=== PATIENT | female | born 1995 | race Caucasian/White ===

== ENCOUNTER 2023-03-05 03:29 | Inpatient (IN) ==
[2023-03-05] MEDS: OXYTOCIN 30 UNITS/NSS 30 UNITS/500 ML BAG IV PRN ×2 (03:36→04:56)
[2023-03-05] MEDS ORDERED: HYDROCORTISONE ACETATE 25 MG SUPP PR PRN (03:44)
[2023-03-05] MEDS ORDERED: oxyCODONE/ACETAMINOPHEN 5mg/325mg TAB PO PRN (03:44)
[2023-03-05] MEDS ORDERED: MEASLES, MUMPS & RUBELLA VIRUS VACCINE (MMR) VIAL SQ ONE (03:44)
[2023-03-05] MEDS ORDERED: BENZOCAINE 20% SPRY 85 APPLN/85 GM CAN EXT PRN (03:44)
[2023-03-05] MEDS ORDERED: DIPHTHERIA/TETANUS/PERTUSSIS Vaccine (Tdap, Age 7+yrs) 0.5mL SYR/VL IM ONE (03:44)
[2023-03-05] MEDS ORDERED: ACETAMINOPHEN 325 MG TAB PO PRN (03:44)
--- NOTE | 2023-03-05 04:02 | Delivery Summary ---
Vaginal Delivery Summary Date of Service March 05, 2023 Vaginal Delivery Summary Patient is a 28-year-old -0-0-3 at 40 weeks and 5 days of gestation who started with contractions around 11 PM when she went to the about and woke up with more painful and regular Contractions at 1:30 AM. She called me around 4 AM and I recommended her to come in. She lives [address] from hospital and precipitously delivered in the car 5 minutes before arrival to the ER at around 0 3:17 AM this morning. She was taken to the ER holding her baby given who was attached to the cord. It was clamped times and cut by myself in the ER. And baby was breathing normally and doing well in mother's arms. They were brought up to labor and delivery in the stretcher and then the mother was moved to the pelvic ped. The was taken by pediatric team to the heater. Placenta was in the vagina and delivered spontaneously intact and complete by myself. Vagina and perineum were intact, no lacerations were found. Lower segment was cleared of all clots and debris's, fundus was firm and EBL was 200 ml. Mom and baby are doing well and stable. Mom has an IV now and will have oxytocin infusion. Her has been uncomplicated except tobacco use and Rh-, she has received RhoGAM on December 08, 2022. GBS negative. She was in the office yesterday when membranes were swiped for labor. She was on schedule for induction of labor on March 09. Baby and mom are being admitted and will continue with routine care.
[2023-03-05 04:15] LABS: Hemoglobin 12.6 g/dl (12.0-16.0); Mean Corpuscular Hgb Conc 34.1 g/dL (32.0-36.0); Mean Corpuscular Volume 82.2 fL (80.0-100.0); Mean Platelet Volume 12.6 fL (9.4-12.4); Platelet Count 144 K/uL (130-400); RDW Standard Deviation 41.3 fL (36.4-46.3); White Blood Count 15.38 K/ul (4.8-10.8)
[2023-03-05] MEDS ORDERED: OXYTOCIN 10 UNITS/ML VIAL ONE (04:55)
[2023-03-05] MEDS: IBUPROFEN 600 MG TAB PO PRN ×4 (05:38→20:28)
--- OUTSIDE RECORDS SUMMARY | 2023-03-05 06:35 | External Medical Summary | Summary of Care ---
Author Name Unknown Organization [facility] Address [address] [place] [address] Phone [phone] Care Team Providers Care Cotton Weigher Operator Name Role Phone Cyndee Kaminski DO Primary Care Provider +1- [phone] Reason for Visit * Reason Comments Return Visit Encounter Details Date Type Department Care Team (Late st Contact Info) Description 03/04/2023 9:45 AM EST Office Visit Gynecology/Obstetric s Rubina Pino [address] [place] [address] Kourtney Bowers CRNP [address] [place] [address] Post-term , 40-42 weeks of gestation*; Normal in third trimester; Rh negative status during in third trimester Allergies No known active allergiesdocumented as of this encounter (statuses as of 03/04/2023) Medications Medication Sig Dispensed Refills Start Date End Date Status 28-0.8 MG Oral Tablet Take by mouth . 0 Active Breast PumpIndications:Breas t feeding status of mother ANNAMARIE 02/28/23, Z39.1, double electric pump 1 Each 0 02/03/2023 Active documented as of this encounter (statuses as of 03/04/2023) Active Problems Problem Noted Date Diagnosed Date Normal 08/26/2022 Rh negative status during 08/26/2022 Overview: rhoGAM given 12/08/22 Tobacco use disorder 09/17/2021 Estimated Date of Delivery Comme nts Yes 02/28/2023 Based on last me nstrual period of 05/24/2022 (Exact Date) documented as of this encounter (statuses as of 03/04/2023) Resolved Problems Problem Noted Date Diagnosed Date Resolved Date Normal 09/05/2015 04/29/2016 Overview: Problem Action Taken Date entered Entered by Date resolved Smoking/tobacco abuse Smoking Education- Was smoking 20 per day down to 10 Cessation encouraged 09/05/2015 Luz Marina Myles RN Unknown LMP Dating via ultrasound 09/05/2015 Luz Marina Myles RN Unplanned desired 09/05/2015 Luz Marina Myles RN nutrition Due date letter provided for WIC 09/05/2015 Luz Marina Myles RN education Declines classes and home nursing at current time 09/05/2015 Luz Marina Myles RN Problem Action Taken Date entered Entered by Date resolved Smoking/tobacco abuse Smoking Education Patient quit smoking 10/27/15 11/20/2015 Raisa Wallace RN 11/20/15 Problem Action Taken Date entered Entered by Date resolved Breast feeding Plans to nurse. Desires breast pump Script faxed 12/25/2015 Luz Marina Myles RN 12/25/2015 control Pt undecided of control. Desires non hormonal. Leaning towards paragard 12/25/2015 Luz Marina Myles RN 12/25/2015 Problem Action Taken Date entered Entered by Date resolved Current needs or questions Patient denies having any current needs or questions 02/26/2016 Keily Rogel RN 02/26/16 Problem Action Taken Date entered Entered by Date resolved Current needs or questions Patient denies having any current needs or questions 03/11/2016 Keily Rogel RN 03/11/16 Tobacco smoking affecting pr egnancy in second trimester 09/05/2015 04/29/2016 Need for rhogam due to Rh negative mother 09/05/2015 04/29/2016 Overview: Rhogam candidate Acute conjunctivitis of right eye 12/19/2014 03/01/2017 Acute maxillary sinusitis 12/19/2014 Adjustment disorder with depressed mood 12/19/2014 03/01/2017 GBS (group B Streptococcus c arrier), +RV culture, currently 02/08/2014 04/29/2016 Contact with or exposure to other viral diseases(V01.79) 10/19/2013 12/19/2014 Overview: 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 Pt given VIS(vaccine information sheet) Nikki Farmer RN Encounter for supervision of other normal 08/22/2013 12/19/2014 Overview: Tdap vaccine administered 01/25/2014 Selene Granados RN ICD-10 update of inactive term Amenorrhea 07/27/2013 08/22/2013 Uncertain dates, antepartum 07/27/2013 08/22/2013 documented as of this encounter (statuses as of 03/04/2023) Immunizations Name Administration Dates Next Due HPV Vaccine, 4-Valent 05/23/2013,06/16/2010 Hepatitis A Vaccine 05/23/2013 Meningococcal MCV4P Conjugate Vaccine (Menactra) 05/23/2013,02/07/2010 Pneumococcal Polysaccharide PPV23 (Pneumovax) ,09/03/2016 Seasonal Influenza Virus Vac cine, Unspecified Formulation 09/04/2016,09/03/2016 TDAP (age 10 and older)(Boostrix) 02/26/2016, TDAP (age 11 and older)(Adacel) 02/07/2010 documented as of this encounter Social History Tobacco Use Types Packs/Day Years Used Date Smoking Tobacco: Former Cigarettes 0.3 Smokeless Tobacco: Never Comments:cutting down Alcohol Use Standard Drinks/Week Comments Not Currently 0 (1 standard drink = 0.6 oz pur e alcohol) PHQ-2 Answer Date Recorded PHQ-2 Score 0 12/05/2019 Hunger Vital Sign Answer Date Recorded Within the past 12 months, y ou worried that your food would run out before you got the money to buy more. Never true 02/04/20 23 Within the past 12 months, t he food you bought just didn't last and you didn't have money to get more. Never true 02/03/2023 [place] Depression Scale Answer Date Recorded [place] Depression Scale Total 5 02/03/2023 The thought of harming myself has occurred to me . Never 02/03/2023 Estimated Date of Delivery Comme nts Yes 02/28/2023 Based on last me nstrual period of 05/24/2022 (Exact Date) Sex and Gender Information Value Date Recorded Sex Assigned at Female 10/27/2021 12:37 AM EDT Gender Identity Female 10/27/2021 12:37 AM EDT Sexual Orientation Straight 10/27/2021 12 :37 AM EDT Job Start Date Occupation Industry Not on file Not on file Not on file documented as of this encounter Last Filed Vital Signs Vital Sign Reading Time Taken Comments Blood Pressure 118/70 03/04/2023 9:56 AM EST Pulse - - Temperature - - Respiratory Rate - - Oxygen Saturation - - Inhaled Oxygen Concentration - - Weight 100.2 kg (220 lb 12.8 oz) 03/04/2023 9:56 AM EST Height 171.5 cm (5' 7.5") 03/04/2023 9:56 AM EST Body Mass Index 34.07 03/04/2023 9:56 AM EST documented in this encounter Progress Notes * Kourtney Bowers CRNP - 03/04/2023 10:18 AM EST 40w4d ?ROM. Has had persistently wet underwear at least since yesterday, maybe since Wednesday. Smelled likeurine, but isn't sure what it is. Was scheduled for membrane sweep today. Explained we need to assess for ROM prior to this. Baby is active. Denies contractions or bleeding. Housekeeper Caregiver Documentation Provider requested machine rebuilder. Name of machine rebuilder: Dee Dee ROM+ obtained, negative. Return Wednesday for NST/DEIDRE. IOL 03/09. * Dee Dee Omalley LPN - 03/04/2023 10:02 AM EST 40w4d Pt here for membrane strip, unsure if she is leaking, not consistently having leaking, put on pantyliner not soaked through. documented in this encounter Plan of Treatment Upcoming Encounters Date Type Department Care Team (Late st Contact Info) Description 03/05/2023 10:45 AM EST [facility] [address] [facility] [place] [address] 03/08/2023 11:15 AM EST Office Visit Gynecology/Obstetrics [facility] [address] [place] [address] Backer, JORDON Ewing [address] [place] [address] Arlyn Pino Stress Tests [facility] [address] [place] [address] Scheduled Orders Name Type Priority Associated Diagnoses Orde r Schedule US PREG LIMITED 1 OR MORE FETUSES Medical Imaging Routine Post-term , 40-42 weeks of gestation Expected: 03/05/2023 (Approximate), Expires: 04/04/2024 Health Maintenance Due Date Last Done Comments Hepatitis B (1 of 3 - 3-dose series) 1995 COVID-19 Vaccine (#1) 1995 GARDASIL-HPV IMMUNIZATION SERIES (3 - 3-dose series) 08/15/2013 05/23/2013, 06/16/2010 Depression Screening 12/04/2020 12/05/2019 Influenza Vaccine (FLU shot) (#1) 2022 09/04/2016, 09/03/2016 Pap Smear 07/28/2025 07/28/2022, 09/17/2021 DTaP,Tdap,and Td Vaccines (4 - Td or Tdap) 02/25/2026 02/26/2016, 01/25/2014, 02/07/2010 MENINGOCOCCAL (MENACTRA/MENVEO) Completed 05/23/2013, 02/07/2010 Pneumococcal Vaccine: Pediatrics (0 to 5 Years) and At-Risk Patients (6 to 64 Years) Aged Out 09/04/2016, 09/03/2016 No longer eligibl e based on patient's age to complete this topic Gonorrhea / Chlamydia Screen Discontinued 07/28/2022, 05/25/2022, 09/17/2021, Additional history exists documented as of this encounter Medical Devices Not on filedocumented as of this encounter Procedures Procedure Name Priority Date/Time Associated Diagnosis Comments RUPTURE OF MEMBRANE STAT 03/04/2023 10:20 AM EST Post-term , 40-42 weeks of gestation documented in this encounter Results * RUPTURE OF MEMBRANE (03/04/2023 10:20 AM EST) Rupture of Membrane Negative Negative 03/04/2023 10:45 AM EST LAB[facility]ATORY [facility] [place] [address] Swab Specimen from wound / Unknown 03/04/2023 10:20 AM EST 03/04/2023 10:20 AM EST Kourtney RUVALCABA LAB FLUID AND STOOL ORDERABLES LABORATORY [facility] [place] [address] [facility] [place] [address] documented in this encounter Visit Diagnoses Diagnosis Post-term , 40-42 weeks of gestation- Primary Post term , unspecified episode of care Normal in third trimester Rh negative status during in third trimester documented in this encounter Care Teams Cotton Weigher Operator Relationship Specialty Start Date End Date Cyndee Kaminski DO [address] [facility] [place] [address] PCP - General Family Medicine 04/12/22 documented as of this encounter
--- OUTSIDE RECORDS SUMMARY | 2023-03-05 06:35 | External Medical Summary ---
Author Name Unknown Address Unknown Organization [id number][facility] [address] [place] [address] Laboratory Report Ordering Provider Test Date Status KESHIA REY 03/04/2023 10:20:04 Final Observation Date Value Abnormality Reference (Units ) Status Premature Rupture Membrane risk 03/04/2023 10:20:04 Negative Negative Final Performing Location LABORATORY [facility] [place] [address] [place] [address]
--- OUTSIDE RECORDS SUMMARY | 2023-03-05 06:36 | External Medical Summary | Summary of Care ---
Author Name Unknown Organization [facility] Address [address] [place] [address] Phone [phone] Care Team Providers Care Automatic Washer Mechanic Name Role Phone Cyndee Kaminski DO Primary Care Provider +1- [phone] Reason for Visit * Reason Comments Return Visit Encounter Details Date Type Department Care Team Description 01/05/2023 [facility] [address] [facility] [place] [address] Kourtney Bowers CRNP [address] [place] [address] Normal in third trimester*; Rh negative, antepartum; Urinary frequency Allergies No known active allergiesdocumented as of this encounter (statuses as of 01/05/2023) Medications Medication Sig Dispensed Refills Start Date End Date Status 28-0.8 MG Oral Tablet Take by mouth . 0 Active documented as of this encounter (statuses as of 01/05/2023) Active Problems Problem Noted Date Normal 08/26/2022 Rh negative status during 07/29 Overview: rhoGAM given 12/08/22 Tobacco use disorder 09/17/2021 Estimated Date of Delivery Comme nts Yes 02/28/2023 Based on last me nstrual period of 05/24/2022 (Exact Date) documented as of this encounter (statuses as of 01/05/2023) Resolved Problems Problem Noted Date Resolved Date Normal 09/05/2015 04/29/2016 Overview: [...] Keily Rogel RN 03/11/16 Tobacco smoking affecting in second tr imester 09/05/2015 04/29/2016 Need for rhogam due to Rh negative mother 201504/29/2016 Overview: Rhogam candidate Acute conjunctivitis of right eye 12/19/2014 03/01/2017 Acute maxillary sinusitis 12/19/20142016 Adjustment disorder with depressed mood 12/20/19 15 03/01/2017 GBS (group B Streptococcus c arrier), +RV culture, currently 02/08/2014 04/29/2016 Contact with or exposure to other viral diseases (V01.79) 10/19/2013 12/19/2014 Overview: 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 Pt given VIS(vaccine information sheet) Nikki Farmer RN Encounter for supervision of other normal pregna ncy 08/22/2013 12/19/2014 Overview: Tdap vaccine administered 01/25/2014 Selene Granados RN ICD-10 update of inactive term Amenorrhea 07/27/2013 08/22/2013 Uncertain dates, antepartum 07/27/201307/28 documented as of this encounter (statuses as of 01/05/2023) Immunizations Name Administration Dates Next Due HPV [...] drink = 0.6 oz pur e alcohol) Food Insecurity Answer Date Recorded Within the past 12 months, y ou worried that your food would run out before you got money to buy more. Never true 07/28/2022 Within the past 12 months, t he food you bought just didn't last and you didn't have money to get more. Never true 07/28/2022 Estimated Date of Delivery Comme nts Yes 02/28/2023 Based on last me nstrual period of 05/24/2022 (Exact Date) Sex Assigned at Date Recorded Female 10/27/2021 12:37 AM EDT Job Start Date Occupation Industry Not on file Not on file Not on file documented as of this encounter Last Filed Vital Signs Vital Sign Reading Time Taken Comments Blood Pressure 110/60 01/05/2023 1:26 PM EDT Pulse - - Temperature - - Respiratory Rate - - Oxygen Saturation - - Inhaled Oxygen Concentration - - Weight 93.4 kg (206 lb) 01/05/2023 1:26 PM EDT Height 171.5 cm (5' 7.5") 01/05/2023 1:26 PM EDT Body Mass Index 31.79 01/05/2023 1:26 PM EDT documented in this encounter Progress Notes * JORDON Paulino - 01/05/2023 1:56 PM EDT 32w2d Having some urinary frequency and pressure. No dysuria. Will send urine culture. Pressure seems more urinary than uterine to her. No other concerns. Baby is active. No contractions, bleeding or LOF. JORDON Paulino * Dee Dee Omalley LPN - 01/05/2023 1:38 PM EDT 32w2d Pt has been having urinary frequency/urgency. Denies any other concnerns documented in this encounter Plan of Treatment Upcoming Encounters Date Type Specialty Care Team Description 01/25/2023 Office Visit Gynecology Obstetrics Theresa Gonzales, SHAUNA [address] [place] [id number] Pending Results Name Type Priority Associated Diagnoses Date /Time CULTURE, URINE, QUANTITATIVE Lab Routine Urinary frequency 01/05/2023 2:02 PM EDT Health Maintenance Due Date Last Done Comments Hepatitis B (1 of 3 - 3-dose series) 1995 COVID-19 Vaccine (#1) 1995 GARDASIL-HPV IMMUNIZATION SERIES (3 - 3-dose series) 09/20/2013 05/23/2013, 06/16/2010 Depression Screening 12/04/2020 12/05/2019 Influenza [...] Procedure Name Priority Date/Time Associated Diagnosis Comments URINALYSIS, POINT OF CARE (ENTER/EDIT) Routine 01/05/2023 Urinary frequency documented in this encounter Results * URINALYSIS, POINT OF CARE (ENTER/EDIT) (01/05/2023) Color, Urine Yellow Yellow or Light Yellow Clarity, Urine Clear Clear Glucose, Urine Negative Negative mg/dL Bilirubin, Urine Negative Negative Ketone, Urine Negative Negative mg/dL Specific [place], Urine 1.025 1.003 - 1.030 Blood, Urine Negative Negative pH, Urine 6.5 5.0 - 7.5 units Protein, Urine Negative Negative mg/dL Urobilinogen, Urine 0.2 0.2 - 1.0 mg/dL Nitrite, Urine Negative Negative Esterase, Urine Negative Negative Urine 01/05/2023 Kourtney RUVALCABA LAB POINT OF CARE TE ST ENTER/EDIT ORDERABLES documented in this encounter Visit Diagnoses Diagnosis Normal in third trimester- Primary Rh negative, antepartum Rhesus isoimmunization affecting management of mother, antepartum condition Urinary frequency documented in this encounter Care Teams Automatic Washer Mechanic Relationship Specialty Start Date End Date Cyndee Kaminski DO [address] [facility] [place] [address] PCP - General Family Medicine 04/12/22 documented as of this encounter
--- OUTSIDE RECORDS SUMMARY | 2023-03-05 06:36 | External Medical Summary ---
Author Name Unknown Address Unknown Organization K01:LAB[facility]ATORY [facility] - [facility] [address] [facility] [address] [facility] [address] Laboratory Report Ordering Provider Test Date Status ZION WELDON 02/03/2023 13:45:30 Final Observation Date Value Abnormality Reference (Units ) Status Streptococcus agalactiae DNA [Presence] in Specimen by ACE with probe detection 02/03/2023 13:45:30 Negative Negative Final No Group B Streptococcus det ected by culture-enhanced PCR (amplified probe).
The collection of vaginal/rectal swab specimen combinations (FDA approved specimen type) is optimal for the detection of Group B Streptococcus. Single source collection (vaginal only or rectal only) or alternate specimen sources may lead to false negative results. Performing Location LABORATORY [facility] - [address] [place] [address]
--- OUTSIDE RECORDS SUMMARY | 2023-03-05 06:36 | External Medical Summary | Summary of Care ---
Author Name Unknown Organization [facility] Address [address] [place] [address] Phone [phone] Care Team Providers Care Coordinator Of Health Services Name Role Phone Cyndee Kaminski DO Primary Care Provider +1- [phone] Reason for Visit * Reason Comments Return Visit Encounter Details Date Type Department Care Team Description 01/05/2023 [facility] [address] [facility] [place] [address] Kourtney Bowers CRNP [address] [facility] [place] [address] Normal in third trimester*; Rh negative, antepartum; [...] Visit Gynecology Obstetrics Theresa Gonzales, SHAUNA [address] [place] [phone] Pending Results Name Type Priority Associated Diagnoses [...] Negative Ketone, Urine Negative Negative mg/dL Specific [place], Urine 1.025 1.003 - 1.030 Blood, Urine [...] frequency documented in this encounter Care Teams Coordinator Of Health Services Relationship Specialty Start Date End Date Cyndee Kaminski DO [address] [facility] [place] [address] PCP - General Family Medicine 04/12/22 documented as of this encounter
--- OUTSIDE RECORDS SUMMARY | 2023-03-05 06:36 | External Medical Summary | Summary of Care ---
Author Name Unknown Organization [facility] Address [address] [place] [address] Phone [phone] Care Team Providers Care Manager Client Support Name Role Phone Cyndee Kaminski DO Primary Care Provider +1- [phone] Reason for Visit * Reason Comments Return Visit Encounter Details Date Type Department Care Team (Late st Contact Info) Description 02/03/2023 1:45 PM EST Office Visit Gynecology/Obstetric s Rubina Pino [address] [place] [address] BackDivya workman CRNP [address] [facility] [place] [address] Normal in third trimester*; Rh negative status during in third trimester; Breast feeding status of mother Allergies No known active allergiesdocumented as of this encounter (statuses as of 02/03/2023) Medications Medication Sig Dispensed Refills Start Date End Date Status 28-0.8 MG Oral Tablet Take by mouth . 0 Active Breast PumpIndications:Breas t feeding status of mother ANNAMARIE 02/28/23, Z39.1, double electric pump 1 Each 0 02/03/2023 Active documented as of this encounter (statuses as of 02/03/2023) Active Problems Problem Noted Date Diagnosed Date Normal 08/26/2022 Rh negative status during 08/26/2022 Overview: rhoGAM given 12/08/22 Tobacco use disorder 09/17/2021 Estimated Date of Delivery Comme nts Yes 02/28/2023 Based on last me nstrual period of 05/24/2022 (Exact Date) documented as of this encounter (statuses as of 02/03/2023) Resolved Problems Problem Noted Date Diagnosed Date [...] 12/19/2014 03/01/2017 GBS (group B Streptococcus c abiel), +RV culture, currently 02/08/2014 04/29/2016 Contact with or exposure to other viral diseases(V01.79) 10/19/2013 12/19/2014 Overview: 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 Pt given VIS(vaccine information sheet) Nikki Farmer RN Encounter for supervision of other normal 08/22/2013 12/19/2014 Overview: Tdap vaccine administered 01/25/2014 Selene Granados RN ICD-10 update of inactive term Amenorrhea 07/27/2013 08/22/2013 Uncertain dates, antepartum 07/27/2013 08/22/2013 documented as of this encounter (statuses as of 02/03/2023) Immunizations Name Administration Dates Next Due HPV [...] money to get more. Never true 02/03/2023 [place] Depression Scale Answer Date Recorded [place] Depression Scale Total 5 02/03/2023 The thought [...] Sign Reading Time Taken Comments Blood Pressure - - Pulse - - Temperature - - Respiratory Rate - - Oxygen Saturation - - Inhaled Oxygen Concentration - - Weight 96.2 kg (212 lb) 02/03/2023 1:29 PM EST Height - - Body Mass Index 32.71 01/05/2023 1:26 PM EDT documented in this encounter Progress Notes * Divya Egan CRNP - 02/03/2023 1:32 PM EST 36w3d Good movement. No regular ctx/leaking/bleeding. Breast pump script & labor instructions provided. GBS today. 1 week return Editor Greeting Card Documentation Provider requested travel assistant. Name of travel assistant: JORDON Ramos LPN * Meera Croft LPN - 02/03/2023 1:29 PM EST 36w3d Denies vaginal bleeding/rom + movement Need breast pump script documented in this encounter Plan of Treatment Upcoming Encounters Date Type Department Care Team (Late Contact Info) Description 02/09/2023 11:45 AM EST Office Visit Gynecology/Obstetrics Rubina Pino [address] [place] [address] Divya Egan CRNP [address] [place] [address] Pending Results Name Type Priority Associated Diagnoses Date /Time GROUP B STREP CULTURE/PCR Lab Routine Normal in third trimester 02/03/2023 1:45 PM EST Health Maintenance Due Date Last Done Comments [...] Not on filedocumented as of this encounter Visit Diagnoses Diagnosis Normal in third trimester- Primary Rh negative status during in third trimester Breast feeding status of mother care and examination of lactating mother documented in this encounter Care Teams Manager Client Support Relationship Specialty Start Date End Date Cyndee Kaminski DO [address] [facility] [place] [address] PCP - General Family Medicine 04/12/22 documented as of this encounter
--- OUTSIDE RECORDS SUMMARY | 2023-03-05 06:36 | External Medical Summary | Summary of Care ---
Author Name Unknown Organization [facility] Address [address] [place] [address] Phone [phone] Care Team Providers Care Second Facing Baster Name Role Phone Cyndee Kaminski DO Primary Care Provider +1- [phone] Reason for Visit * Reason Comments Return Visit Encounter Details Date Type Department Care Team Description 12/22/2022 Office [facility] [address] [place] [address] Jewell Meeks PA-C [address] [place] [address] Normal in third trimester*; Rh negative status during in third trimester Allergies No known active allergiesdocumented as of this encounter (statuses as of 12/22/2022) Medications Medication Sig Dispensed Refills Start Date End Date Status 28-0.8 MG Oral Tablet Take by mouth . 0 Active documented as of this encounter (statuses as of 12/22/2022) Active Problems Problem Noted Date Normal 08/26/2022 Rh negative status during 07/29 Overview: rhoGAM given 12/08/22 Tobacco use disorder 09/17/2021 Estimated Date of Delivery Comme nts Yes 02/28/2023 Based on last me nstrual period of 05/24/2022 (Exact Date) documented as of this encounter (statuses as of 12/22/2022) Resolved Problems Problem Noted Date Resolved Date [...] as of this encounter (statuses as of 12/22/2022) Immunizations Name Administration Dates Next Due HPV [...] Sign Reading Time Taken Comments Blood Pressure 118/74 12/22/2022 11:19 AM EDT Pulse - - Temperature - - Respiratory Rate - - Oxygen Saturation - - Inhaled Oxygen Concentration - - Weight 90.3 kg (199 lb) 12/22/2022 11:19 AM EDT Height 171.5 cm (5' 7.5") 12/22/2022 11:19 AM ED T Body Mass Index 30.71 12/22/2022 11:19 AM EDT documented in this encounter Progress Notes * Jewell Meeks PA-C - 12/22/2022 11:28 AM EDT 30w2d Denies concerns. Denies bleeding, leaking, contractions. Affirms FM. Recommendation for flu vaccine, patient declines. RTC in 2 weeks. Call with questions or concerns. Jewell Meeks PA-C documented in this encounter Nursing Notes * Radha Duarte LPN - 12/22/2022 11:30 AM EDT 30w2d Denies concerns. documented in this encounter Plan of Treatment Upcoming Encounters Date Type Specialty Care Team Description 01/05/2023 Office Visit Gynecology Obstetrics Kourtney Bowers CRNP [address] [place] [address] Health Maintenance Due Date Last Done Comments [...] Discontinued 07/28/2022, 05/25/2022, 09/17/2021, Additional history exists Hepatitis C Screening Completed 07/28/2022 , 07/28/2022, 07/28/2022, Additional history exists documented as of this encounter Medical Devices Not on filedocumented as of this encounter Visit Diagnoses Diagnosis Normal in third trimester- Primary Rh negative status during in third trimester documented in this encounter Care Teams Second Facing Baster Relationship Specialty Start Date End Date Cyndee Kaminski DO [address] [facility] [place] [address] PCP - General Family Medicine 04/12/22 documented as of this encounter
--- OUTSIDE RECORDS SUMMARY | 2023-03-05 06:36 | External Medical Summary | Summary of Care ---
Author Name Unknown Organization [facility] Address [address] [place] [address] Phone [phone] Care Team Providers Care Audit Specialist Name Role Phone Cyndee Kaminski DO Primary Care Provider +1- [phone] Reason for Visit * Reason Comments Return Visit Encounter Details Date Type Department Care Team (Late st Contact Info) Description 02/22/2023 10:45 AM EST Office Visit Gynecology/Obstetric s Rubina Pino [address] [place] [address] Kourtney Bowers CRNP [address] [place] [address] Normal in third trimester*; Rh negative, antepartum Allergies No known active allergiesdocumented as of this encounter (statuses as of 02/22/2023) Medications Medication Sig Dispensed Refills Start Date End Date Status 28-0.8 MG Oral Tablet Take by mouth . 0 Active Breast PumpIndications:Breas t feeding status of mother ANNAMARIE 02/28/23, Z39.1, double electric pump 1 Each 0 02/03/2023 Active documented as of this encounter (statuses as of 02/22/2023) Active Problems Problem Noted Date Diagnosed Date Normal 08/26/2022 Rh negative status during 08/26/2022 Overview: rhoGAM given 12/08/22 Tobacco use disorder 09/17/2021 Estimated Date of Delivery Comme nts Yes 02/28/2023 Based on last me nstrual period of 05/24/2022 (Exact Date) documented as of this encounter (statuses as of 02/22/2023) Resolved Problems Problem Noted Date Diagnosed Date [...] need follow up Rh negative, antepartum 08/28/2013 02/03/2016 Overview: Rhogam candidate Received rhogam 12/25/2015 Randa Casanova RN 02/26/2016 Tdap Vaccine administered per clinic protocol. Pt given VIS(vaccine information sheet) Nikki Farmer RN Encounter for supervision of other normal 08/22/2013 12/19/2014 Overview: Tdap vaccine administered 01/25/2014 Selene Granados RN ICD-10 update of inactive term Amenorrhea 07/27/2013 08/22/2013 Uncertain dates, antepartum 07/27/2013 08/22/2013 documented as of this encounter (statuses as of 02/22/2023) Immunizations Name Administration Dates Next Due HPV [...] money to get more. Never true 02/03/2023 [place] Depression Scale Answer Date Recorded [place] Depression Scale Total 5 02/03/2023 The thought [...] Sign Reading Time Taken Comments Blood Pressure 122/72 02/22/2023 10:47 AM EST Pulse - - Temperature - - Respiratory Rate - - Oxygen Saturation - - Inhaled Oxygen Concentration - - Weight 100.7 kg (222 lb) 02/22/2023 10:47 AM EST Height - - Body Mass Index 34.26 01/05/2023 1:26 PM EDT documented in this encounter Progress Notes * Kourtney Bowers CRNP - 02/22/2023 11:00 AM EST 39w1d Complaints: none Feeling well overall. Good FM. No contractions, bleeding, or LOF. Agreeable to IOL after 41w, scheduled for 03/09. JORDON Paulino * Meera Croft LPN - 02/22/2023 10:48 AM EST 39w1d Denies vaginal bleeding/rom + movement No new concerns documented in this encounter Plan of Treatment Upcoming Encounters Date Type Department Care Team (Late st Contact Info) Description 03/01/2023 11:45 AM EST Office Visit Gynecology/Obstetrics [facility] [address] [place] [address] Selene Marrero, [facility] [address] [place] [address] Health Maintenance Due Date Last Done Comments [...] isoimmunization affecting management of mother, antepartum condition documented in this encounter Care Teams Audit Specialist Relationship Specialty Start Date End Date Cyndee Kaminski DO [address] [facility] [place] [address] PCP - General Family Medicine 04/12/22 documented as of this encounter
--- OUTSIDE RECORDS SUMMARY | 2023-03-05 06:36 | External Medical Summary | Summary of Care ---
Author Name Unknown Organization [facility] Address [address] [place] [address] Phone [phone] Care Team Providers Care Nursing Program Director Name Role Phone Cyndee Kaminski DO Primary Care Provider +1- [phone] Reason for Visit * Reason Comments Return Visit Encounter Details Date Type Department Care Team Description 01/05/2023 [facility] [address] [facility] [place] [address] Kourtney Bowers CRNP [address] [facility] [place] [address] Normal in third trimester*; Rh negative, antepartum; [...] Visit Gynecology Obstetrics Theresa Gonzales, SHAUNA [address] [place] [id number] Pending Results Name Type Priority Associated Diagnoses [...] Negative Ketone, Urine Negative Negative mg/dL Specific [place], Urine 1.025 1.003 - 1.030 Blood, Urine [...] frequency documented in this encounter Care Teams Nursing Program Director Relationship Specialty Start Date End Date Cyndee Kaminski DO [address] [facility] [place] [address] PCP - General Family Medicine 04/12/22 documented as of this encounter
--- OUTSIDE RECORDS SUMMARY | 2023-03-05 06:36 | External Medical Summary | Summary of Care ---
Author Name Unknown Organization [facility] Address [address] [place] [address] Phone [phone] Care Team Providers Care Plate Mill Hand Name Role Phone Cyndee Kaminski DO Primary Care Provider +1- [phone] Reason for Visit * Reason Comments Return Visit Encounter Details Date Type Department Care Team (Late st Contact Info) Description 02/15/2023 11:45 AM EST Office Visit Gynecology/Obstetric s Rubina Pino [address] [place] [address] BackDivya workman CRNP [address] [facility] [place] [address] Normal in third trimester*; Rh negative status during in third trimester Allergies No known active allergiesdocumented as of this encounter (statuses as of 02/15/2023) Medications Medication Sig Dispensed Refills Start Date End Date Status 28-0.8 MG Oral Tablet Take by mouth . 0 Active Breast PumpIndications:Breas t feeding status of mother ANNAMARIE 02/28/23, Z39.1, double electric pump 1 Each 0 02/03/2023 Active documented as of this encounter (statuses as of 02/15/2023) Active Problems Problem Noted Date Diagnosed Date Normal 08/26/2022 Rh negative status during 08/26/2022 Overview: rhoGAM given 12/08/22 Tobacco use disorder 09/17/2021 Estimated Date of Delivery Comme nts Yes 02/28/2023 Based on last me nstrual period of 05/24/2022 (Exact Date) documented as of this encounter (statuses as of 02/15/2023) Resolved Problems Problem Noted Date Diagnosed Date [...] Overview: Rhogam candidate Received rhogam 12/25/2015 Randa Casanova, RN 02/26/2016 Tdap Vaccine administered per clinic protocol. Pt given VIS(vaccine information sheet) Nikki Farmer RN Encounter for supervision of other normal 08/22/2013 12/19/2014 Overview: Tdap vaccine administered 01/25/2014 Selene Granados RN ICD-10 update of inactive term Amenorrhea 07/27/2013 08/22/2013 Uncertain dates, antepartum 07/27/2013 08/22/2013 documented as of this encounter (statuses as of 02/15/2023) Immunizations Name Administration Dates Next Due HPV [...] money to get more. Never true 02/03/2023 [place] Depression Scale Answer Date Recorded [place] Depression Scale Total 5 02/03/2023 The thought [...] Sign Reading Time Taken Comments Blood Pressure 106/62 02/15/2023 11:41 AM EST Pulse - - Temperature - - Respiratory Rate - - Oxygen Saturation - - Inhaled Oxygen Concentration - - Weight 97.5 kg (215 lb) 02/15/2023 11:41 AM EST Height - - Body Mass Index 33.18 01/05/2023 1:26 PM EDT documented in this encounter Progress Notes * Divya Egan CRNP - 02/15/2023 11:53 AM EST 38w1d Doing well, reports good movement. No ctx, leaking/bleeding. Has labor instructions. 1 week return JORDON [place] documented in this encounter Plan of Treatment Health Maintenance Due Date Last Done Comments [...] trimester documented in this encounter Care Teams Plate Mill Hand Relationship Specialty Start Date End Date Cyndee Kaminski DO [address] [facility] [place] [address] PCP - General Family Medicine 04/12/22 documented as of this encounter
--- OUTSIDE RECORDS SUMMARY | 2023-03-05 06:36 | External Medical Summary | Summary of Care ---
Author Name Unknown Organization [facility] Address [address] [place] [address] Phone [phone] Care Team Providers Care Salon Designer Name Role Phone Cyndee Kaminski DO Primary Care Provider +1- [phone] Reason for Visit * Reason Comments Return Visit Encounter Details Date Type Department Care Team (Late st Contact Info) Description 02/03/2023 1:45 PM EST Office Visit Gynecology/Obstetric s Rubina Pino [address] [place] [address] BackDivya workman CRNP [address] [facility] [place] [address] Normal in third trimester*; Rh negative status [...] money to get more. Never true 02/03/2023 [place] Depression Scale Answer Date Recorded [place] Depression Scale Total 5 02/03/2023 The thought [...] instructions provided. GBS today. 1 week return Jet Blade Polisher Documentation Provider requested sexual health physician. Name of sexual health physician: JORDON Ramos LPN * Meera Croft LPN - 02/03/2023 1:29 PM EST 36w3d Denies vaginal bleeding/rom + movement Need breast pump script documented in this encounter Plan of Treatment Upcoming Encounters Date Type Department Care Team (Late Contact Info) Description 02/09/2023 11:45 AM EST Office Visit Gynecology/Obstetrics Rubina Pino [address] [place] [address] Divya Egan CRNP [address] [place] [address] Pending Results Name Type Priority Associated Diagnoses [...] mother documented in this encounter Care Teams Salon Designer Relationship Specialty Start Date End Date Cyndee Kaminski DO [address] [facility] [place] [address] PCP - General Family Medicine 04/12/22 documented as of this encounter
--- OUTSIDE RECORDS SUMMARY | 2023-03-05 06:36 | External Medical Summary ---
Author Name Unknown Address Unknown Organization K01:[facility] [place] [address] [place] [id number] Laboratory Report Ordering Provider Test Date Status CANDIDOKESHIA 01/05/2023 14:02:42 Final Observation Date Value Abnormality Reference (Units) Status Bacteria identified in Specimen by Culture 01/05/2023 14:02:42 No significant growth Final Test: Culture, Urine, Quant itative
Specimen Source: Urine, Clean Catch
Specimen Type: Urine
Specimen Date: 01/05/2023 2:02 PM
Result Date: 01/06/2023 5:23 PM
Result Status: Final result
Resulting Lab: [facility]
[address]
[place] [address]

CULTURE

No significant growth

null Performing Location [facility] - [address] [facility] [address]
--- OUTSIDE RECORDS SUMMARY | 2023-03-05 06:36 | External Medical Summary | Summary of Care ---
Author Name Unknown Organization [facility] Address [address] [place] [facility] [place] [address] Phone [phone] Care Team Providers Care Oceanographer Geological Name Role Phone Cyndee Kaminski DO Primary Care Provider +1- [phone] Reason for Visit * Reason Comments Return Visit Encounter Details Date Type Department Care Team (Late st Contact Info) Description 03/01/2023 1:45 PM EST Office Visit Gynecology/Obstetric s Rubina Pino [address] [place] [address] Jewell Meeks PA-C [address] [place] [address] Normal in third trimester*; Rh negative status during in third trimester Allergies No known active allergiesdocumented as of this encounter (statuses as of 03/01/2023) Medications Medication Sig Dispensed Refills Start Date End Date Status 28-0.8 MG Oral Tablet Take by mouth . 0 Active Breast PumpIndications:Breas t feeding status of mother ANNAMARIE 02/28/23, Z39.1, double electric pump 1 Each 0 02/03/2023 Active documented as of this encounter (statuses as of 03/01/2023) Active Problems Problem Noted Date Diagnosed Date Normal 08/26/2022 Rh negative status during 08/26/2022 Overview: rhoGAM given 12/08/22 Tobacco use disorder 09/17/2021 Estimated Date of Delivery Comme nts Yes 02/28/2023 Based on last me nstrual period of 05/24/2022 (Exact Date) documented as of this encounter (statuses as of 03/01/2023) Resolved Problems Problem Noted Date Diagnosed Date [...] as of this encounter (statuses as of 03/01/2023) Immunizations Name Administration Dates Next Due HPV [...] money to get more. Never true 02/03/2023 [place] Depression Scale Answer Date Recorded [place] Depression Scale Total 5 02/03/2023 The thought [...] Sign Reading Time Taken Comments Blood Pressure 120/70 03/01/2023 1:47 PM EST Pulse - - Temperature - - Respiratory Rate - - Oxygen Saturation - - Inhaled Oxygen Concentration - - Weight 100.2 kg (221 lb) 03/01/2023 1:47 PM EST Height 171.5 cm (5' 7.5") 03/01/2023 1:47 PM EST Body Mass Index 34.1 03/01/2023 1:47 PM EST documented in this encounter Progress Notes * Jewell Meeks PA-C - 03/01/2023 2:15 PM EST 40w1d Becoming increasingly uncomfortable. Denies contractions. Reports increase in pelvic pressure. Denies LOF, vaginal bleeding. Baby is active. IOL scheduled 03/09/2023, hoping to avoid IOL if able. Declines cervical check. Labor precautions RTC in 1 week VANNESSA/NST Jewell Meeks PA-C * Dee Dee Omalley LPN - 03/01/2023 1:54 PM EST 40w1d Pt denies any concerns. documented in this encounter Plan of Treatment Upcoming Encounters Date Type Department Care Team (Late st Contact Info) Description 03/04/2023 9:45 AM EST Office Visit Gynecology/Obstetrics Rubina Pino [address] [place] [address] Kourtney Bowers CRNP [address] [place] [address] Health Maintenance Due Date Last Done Comments [...] trimester documented in this encounter Care Teams Oceanographer Geological Relationship Specialty Start Date End Date Cyndee Kaminski DO [address] [facility] [place] [address] PCP - General Family Medicine 04/12/22 documented as of this encounter
--- OUTSIDE RECORDS SUMMARY | 2023-03-05 06:37 | External Medical Summary ---
Author Name Unknown Address Unknown Organization [id number]:[facility] [place] - [facility] [address] Laboratory Report Ordering Provider Test Date Status MELISSA PAZ 12/08/2022 12:23:37 Final Observation Date Value Abnormality Reference (Units ) Status WBC, Total 12/08/2022 12:23:37 9.33 4.00-10.8 0 (K/uL) Final RBC 12/08/2022 12:23:37 4.36 3.85-5.15 (M/uL) Final Hemoglobin 12/08/2022 12:23:37 12.7 12.0-15.3 (g/dL) Final Anemia reflex testing trigge rs on a HGB < 12.0 for Females and HGB < 13.0 for Males in accordance with the WHO Anemia Guidelines
Anemia reflex testing triggers on a HGB < 12.0 for Females and HGB < 13.0 for Males in accordance with the WHO Anemia Guidelines HCT 12/08/2022 12:23:37 38.9 36.0-45.2 (%) Final MCV 12/08/2022 12:23:37 89.2 81.5-97.5 (fL) Final MCH 12/08/2022 12:23:37 29.1 27.0-34.0 (pg) Final MCHC 12/08/2022 12:23:37 32.6 32.0-36.0 (g/dL) Final RDW 12/08/2022 12:23:37 13.1 11.5-15.5 (%) Final Platelets 12/08/2022 12:23:37 150 140-400 (K /uL) Final MPV 12/08/2022 12:23:37 12.3 6.6-11.1 ( fL) Final Nucleated erythrocytes/100 leukocytes [Ratio] in Blood by Automated count 12/08/2022 12:23:37 0 <=0 (/100 WBCs) Fi nal Performing Location [facility] [place] - [address] [place] [address]
--- OUTSIDE RECORDS SUMMARY | 2023-03-05 06:37 | External Medical Summary | Summary of Care ---
Author Name Unknown Organization [facility] Address [address] [place] [address] Phone [phone] Care Team Providers Care Underwriting Assistant Name Role Phone Cyndee Kaminski DO Primary Care Provider +1- [phone] Reason for Visit * Reason Comments Return Visit Encounter Details Date Type Department Care Team Description 09/22/2022 Office Visit Gynecology/Obstetrics [facility] [address] [facility] [place] [address] Divya Egan CRNP [address] [facility] [place] [address] Normal in second trimester*; Rh negative status during in second trimester Allergies No known active allergiesdocumented as of this encounter (statuses as of 09/22/2022) Medications Medication Sig Dispensed Refills Start Date End Date Status 28-0.8 MG Oral Tablet Take by mouth . 0 Active documented as of this encounter (statuses as of 09/22/2022) Active Problems Problem Noted Date Normal 08/26/2022 Rh negative status during 07/29 Tobacco use disorder 09/17/2021 Estimated Date of Delivery Comme nts Yes 02/28/2023 Based on last me nstrual period of 05/24/2022 (Exact Date) documented as of this encounter (statuses as of 09/22/2022) Resolved Problems Problem Noted Date Resolved Date [...] 15 03/01/2017 GBS (group B Streptococcus c abiel), [...] as of this encounter (statuses as of 09/22/2022) Immunizations Name Administration Dates Next Due HPV [...] Sign Reading Time Taken Comments Blood Pressure 116/60 09/22/2022 11:23 AM EDT Pulse - - Temperature - - Respiratory Rate - - Oxygen Saturation - - Inhaled Oxygen Concentration - - Weight 78.5 kg (173 lb) 09/22/2022 11:23 AM EDT Height - - Body Mass Index 26.7 07/28/2022 9:35 AM EDT documented in this encounter Progress Notes * JORDON Osorio - 09/22/2022 11:30 AM EDT 17w 2d + movement. Denies cramping/bleeding. Low fraction on NIPT, discussed. Has an order to repeat this, she plans to check her insurance coverage first. Discussed MSAFP and role in detecting ONTD; she wants to check insurance coverage on this as well. Discussed timing of this test. Anatomy scan ordered. JORDON Whittington documented in this encounter Nursing Notes * Meera Croft LPN - 09/22/2022 11:25 AM EDT 17w2d Denies vaginal bleeding/rom Absent movement No new concerns documented in this encounter Plan of Treatment Upcoming Encounters Date Type Specialty Care Team Description 10/12/2022 Imaging Radiology Scheduled Orders Name Type Priority Associated Diagnoses Orde r Schedule US PREG SINGLE/1ST GEST, 14 WEEKS OR LATER Medical Imaging Routine Normal in second trimester Expected: 10/12/2022 (Approximate), Expires: 10/23/2023 Health Maintenance Due Date Last Done Comments Hepatitis B (1 of 3 - 3-dose series) 1995 COVID-19 Vaccine (#1) 1995 GARDASIL-HPV IMMUNIZATION SERIES (3 - 3-dose series) 09/20/2013 05/23/2013, 06/16/2010 Depression Screening, Annual for Pts 12 and Over 12/04/2020 12/05/2019 Influenza Vaccine (FLU shot) (Season Ended) 2022 09/04/2016, 09/03/2016 Pap Smear 07/28/2025 07/28/2022, [...] this encounter Visit Diagnoses Diagnosis Normal in second trimester- Primary Rh negative status during in second trimester documented in this encounter Care Teams Underwriting Assistant Relationship Specialty Start Date End Date Cyndee Kaminski DO [address] [facility] [place] [address] PCP - General Family Medicine 04/12/22 documented as of this encounter
--- OUTSIDE RECORDS SUMMARY | 2023-03-05 06:37 | External Medical Summary ---
Author Name Unknown Address Unknown Organization [id number]:LABORATORY [facility] [place] [facility] - [address] [place] [address] Laboratory Report Ordering Provider Test Date Status MELISSA PAZ 12/08/2022 12:23:37 Final Observation Date Value Abnormality Reference (Units ) Status ABO 12/08/2022 12:23:37 O Final RH 12/08/2022 12:23:37 Negative Final RED BLOOD CELL ANTIBODY SCREEN 12/08/2022 12:23:37 Negative Final SPECIMEN EXPIRATION DATE 12/08/2022 12:23:37 12/11/2022 23:59 Final Performing Location LABORATORY [facility] - [address] [place] [address]
--- OUTSIDE RECORDS SUMMARY | 2023-03-05 06:37 | External Medical Summary ---
Author Name Unknown Address Unknown Organization [id number]:LABORATORY [facility] [address] - [address] [place] [address] Laboratory Report Ordering Provider Test Date Status MELISSA PAZ 12/08/2022 12:23:37 Final Observation Date Value Abnormality Reference (Units ) Status Glucose [Moles/volume] in Serum or Plasma --1 hour post 50 g glucose PO 12/08/2022 12:23:37 94 70-129 (mg/dL) Final Performing Location LAB[facility]ATORY [facility] [address] - [address] [place] [address]
--- OUTSIDE RECORDS SUMMARY | 2023-03-05 06:37 | External Medical Summary ---
Author Name Unknown Address Unknown Organization [id number]:[facility] [address] [place] [address] Laboratory Report Ordering Provider Test Date Status MELISSA PAZ 12/08/2022 12:23:37 Final Observation Date Value Abnormality Reference (Units ) Status Treponema pallidum Ab [Presence] in Serum by Immunoassay 12/08/2022 12:23:37 Nonreactive Nonreactive Final No serologic evidence of syp hilis. No additional testing clinicially indicated at this time. Consider repeat testing in 2-4 weeks if acute or primary syphilis is suspected. Performing Location [facility] - [address] [place] [address]
--- OUTSIDE RECORDS SUMMARY | 2023-03-05 06:37 | External Medical Summary | Summary of Care ---
Author Name Unknown Organization [facility] Address [address] [place] [address] Phone [phone] Care Team Providers Care Butter Grader Name Role Phone Cyndee Kaminski DO Primary Care Provider +1- [phone] Reason for Visit * Reason Comments Outpatient Testing Encounter Details Date Type Department Care Team Description 12/08/2022 Laboratory Laboratory, [facility] [address] [place] [address] [facility] [address] [place] [address] Normal in second trimester; Rh negative status during in second trimester Allergies No known active allergiesdocumented as of this encounter (statuses as of 12/08/2022) Medications Medication Sig Dispensed Refills Start Date End Date Status 28-0.8 MG Oral Tablet Take by mouth . 0 Active Hospital, Clinic, or Other Facility Administered Medication Ordered Dose Route Frequency Start Date End Date Status Rho D Immune Globulin (Rhophylac) inj 300 mcgIndications:Rh negative status during in third trimester 300 mcg IM ONCE 12/08/2022 12/08/2022 Ended documented as of this encounter (statuses as of 12/08/2022) Active Problems Problem Noted Date Normal 08/26/2022 Rh negative status during 07/29 Overview: rhoGAM given 12/08/22 Tobacco use disorder 09/17/2021 Estimated Date of Delivery Comme nts Yes 02/28/2023 Based on last me nstrual period of 05/24/2022 (Exact Date) documented as of this encounter (statuses as of 12/08/2022) Resolved Problems Problem Noted Date Resolved Date [...] as of this encounter (statuses as of 12/08/2022) Immunizations Name Administration Dates Next Due HPV [...] on file documented as of this encounter Plan of Treatment Upcoming Encounters Date Type Specialty Care Team Description 12/22/2022 Office Visit Gynecology Obstetrics Jewell Meeks PA-C [address] [place] [address] Pending Results Name Type Priority Associated Diagnoses Date /Time CBC WITH WBC DIFFERENTIAL AND ANEMIA REFLEX WORKUP Lab Routine Normal in second trimester 12/08/2022 12:23 PM EDT SYPHILIS ANTIBODY SCREEN WITH REFLEX TO RPR Lab Routine Normal in second trimester 12/08/2022 12:23 PM EDT 50-G GESTATIONAL GLUCOSE, 1 HOUR Lab Routine Normal in second trimester 12/08/2022 12:23 PM EDT TYPE AND SCREEN Lab Routine Rh negative status during in second trimester 12/08/2022 12:23 PM EDT ANEMIA CBC Lab Routine Normal in second trimester 12/08/2022 12:23 PM EDT DIFFERENTIAL, AUTOMATED Lab Routine Normal in second trimester 12/08/2022 12:23 PM EDT ANEMIA REFLEX CHEMISTRY HOLD Lab Routine Normal in second trimester 12/08/2022 12:23 PM EDT SYPHILIS ANTIBODY SCREEN Lab Routine Normal in second trimester 12/08/2022 12:23 PM EDT Health Maintenance Due Date Last [...] encounter Visit Diagnoses Diagnosis Normal in second trimester Rh negative status during in second trimester documented in this encounter Care Teams Butter Grader Relationship Specialty Start Date End Date Cyndee Kaminski DO [address] [facility] [place] [address] PCP - General Family Medicine 04/12/22 documented as of this encounter
--- OUTSIDE RECORDS SUMMARY | 2023-03-05 06:37 | External Medical Summary | Summary of Care ---
Author Name Unknown Organization [facility] Address [address] [facility] [place] [address] Phone [phone] Care Team Providers Care Industrial Manufacturing Technician Name Role Phone Cyndee Kaminski DO Primary Care Provider +1- [phone] Encounter Details Date Type Department Care Team Description 09/08/2022 Telephone Gynecology/Obstetrics Rubina Pino [address] [place] [address] Kourtney Bowers CRNP [address] [place] [address] Allergies No known active allergiesdocumented as of this encounter (statuses as of 09/08/2022) Medications Medication Sig Dispensed Refills Start Date End Date Status 28-0.8 MG Oral Tablet Take by mouth . 0 Active documented as of this encounter (statuses as of 09/08/2022) Active Problems Problem Noted Date Normal 08/26/2022 Rh negative status during 07/29 Tobacco use disorder 09/17/2021 Estimated Date of Delivery Comme nts Yes 02/28/2023 Based on last me nstrual period of 05/24/2022 (Exact Date) documented as of this encounter (statuses as of 09/08/2022) Resolved Problems Problem Noted Date Resolved Date [...] 12/19/2014 Overview: Tdap vaccine administered 01/25/2014 Selene Granaods RN ICD-10 update of inactive term Amenorrhea 07/27/2013 08/22/2013 Uncertain dates, antepartum 07/27/201307/28 documented as of this encounter (statuses as of 09/08/2022) Immunizations Name Administration Dates Next Due HPV [...] on file documented as of this encounter Miscellaneous Notes * Telephone Encounter - Jonna Lowery RN - 09/08/2022 2:15 PM EDT Patient called and made aware. Patient verbalized understanding. * Telephone Encounter - JORDON Paulino - 09/08/2022 2:03 PM EDT Order placed. And let her know I hid the gender, like in the first Qnatal she had drawn. * Telephone Encounter - Jonna Lowery RN - 09/08/2022 1:28 PM EDT Patient called and made aware. States she would like to have repeat testing at this time. She wouldlike to have order placed at this time, Advised patient to verify coverage with insurance prior to ordering, patient declines, states she would just like to have this ordered. * Telephone Encounter - JORDON Paulino - 09/08/2022 1:11 PM EDT Pt of Rogelio's: Qnatal shows low fraction. This can occur for a variety of reasons. Can be too early, can occur because of obesity (though likely not her case), some medications, or genetic abnormalities. We can repeat this if she'd like. We can refer to MFM for further evaluation/testing, or we can do nothing. documented in this encounter Plan of Treatment Upcoming Encounters Date Type Specialty Care Team Description 09/22/2022 Office Visit Gynecology Obstetrics Backer, JORDON Ewing [address] [facility] [place] [address] Scheduled Orders Name Type Priority Associated Diagnoses Orde r Schedule QNATAL ADVANCED (QUEST) Lab Routine Normal in second trimester Expected: 09/08/2022, Expires: 09/09/2023 Health Maintenance Due Date Last Done Comments [...] Diagnoses Diagnosis Normal in second trimester- Primary documented in this encounter Care Teams Industrial Manufacturing Technician Relationship Specialty Start Date End Date Cyndee Kaminski DO [address] [facility] [place] [address] PCP - General Family Medicine 04/12/22 documented as of this encounter
--- OUTSIDE RECORDS SUMMARY | 2023-03-05 06:37 | External Medical Summary | Summary of Care ---
Author Name Unknown Organization [facility] Address [address] [facility] [place] [address] Phone [phone] Care Team Providers Care Assistant Plant Controller Name Role Phone yCndee Kaminski DO Primary Care Provider +1- [phone] Reason for Visit * Reason Comments Return Visit Encounter Details Date Type Department Care Team Description 10/12/2022 Office Visit Gynecology/Obstetrics Enamoradoalethea Pino [address] [place] [address] Jewell Meeks PA-C [address] [place] [address] Normal in second trimester*; Rh negative status during in second trimester Allergies No known active allergiesdocumented as of this encounter (statuses as of 10/12/2022) Medications Medication Sig Dispensed Refills Start Date End Date Status 28-0.8 MG Oral Tablet Take by mouth . 0 Active documented as of this encounter (statuses as of 10/12/2022) Active Problems Problem Noted Date Normal 08/26/2022 Rh negative status during 07/29 Tobacco use disorder 09/17/2021 Estimated Date of Delivery Comme nts Yes 02/28/2023 Based on last me nstrual period of 05/24/2022 (Exact Date) documented as of this encounter (statuses as of 10/12/2022) Resolved Problems Problem Noted Date Resolved Date [...] nurse. Desires breast pump Script faxed 12/25/2015 LuzM arina Myles RN 12/25/2015 control Pt undecided of [...] as of this encounter (statuses as of 10/12/2022) Immunizations Name Administration Dates Next Due HPV [...] Reading Time Taken Comments Blood Pressure 110/60 10/12/2022 11:09 AM EDT Pulse - - Temperature - - Respiratory Rate - - Oxygen Saturation - - Inhaled Oxygen Concentration - - Weight 80.2 kg (176 lb 12.8 oz) 023 11:09 AM EDT Height 171.5 cm (5' 7.5") 10/12/2022 11 :09 AM EDT Body Mass Index 27.28 10/12/2022 11:09 AM EDT documented in this encounter Progress Notes * Jewell Meeks PA-C - 10/12/2022 11:32 AM EDT 20w1d Anatomy ultrasound, final report pending. Pt states likely needs follow up ultrasound for missed heart views. Order placed to schedule in 2 weeks form today. + FHT by ultrasound Without complaints/concerns RTC in 4 weeks Jewell Meeks PA-C documented in this encounter Nursing Notes * BECKA Perdue - 10/12/2022 11:24 AM EDT 20w1d Pt denies any concerns documented in this encounter Plan of Treatment Upcoming Encounters Date Type Specialty Care Team Description 10/27/2022 Imaging Radiology 11/09/2022 Office Visit Gynecology Obstetrics Jewell Meeks PA-C [address] [place] [address] Scheduled Orders Name Type Priority Associated Diagnoses Orde r Schedule US PREG LIMITED 1 OR MORE FETUSES Medical Imaging Routine Normal in second trimester Expected: 10/12/2022, Expires: 11/13/2023 Health Maintenance Due Date Last Done Comments Hepatitis B (1 of 3 - 3-dose series) 1995 COVID-19 Vaccine (#1) 1995 GARDASIL-HPV IMMUNIZATION SERIES (3 - 3-dose series) 09/20/2013 05/23/2013, 06/16/2010 Depression Screening, Annual for Pts 12 and Over 12/04/2020 12/05/2019 Influenza Vaccine (FLU shot) (#1) [...] trimester documented in this encounter Care Teams Assistant Plant Controller Relationship Specialty Start Date End Date Cyndee Kaminski DO [address] [facility] [place] [address] PCP - General Family Medicine 04/12/22 documented as of this encounter
--- OUTSIDE RECORDS SUMMARY | 2023-03-05 06:37 | External Medical Summary ---
Author Name Unknown Address Unknown Organization K01:LABORATORY [facility] [place] - [address] [place] [address] [place] [address] Laboratory Report Ordering Provider Test Date Status MELISSA PAZ 12/08/2022 12:23:37 Final Observation Date Value Abnormality Reference (Units ) Status SYNC LEUKOCYTES IN BLOOD BY AUTOMATED COUNT 12/08/2022 12:23:37 9.33 4.00-10.80 (K/uL) Final Segs 12/08/2022 12:23:37 74.5 40.0-75.0 (%) Final Lymphs % 12/08/2022 12:23:37 17.0 Below low normal 18.0-42.0 (%) Final Monos 12/08/2022 12:23:37 6.3 1.0-11.0 (%) Final Eosinophils 12/08/2022 12:23:37 1.4 0.0-6.0 (%) Final Basos 12/08/2022 12:23:37 0.2 0.0-2.0 (%) Final Immature Granulocyte, Percent 12/08/2022 12:23:37 0.6 0.0-2.0 (%) Final Absolute Segs 12/08/2022 12:23:37 6.94 1.80-7.70 (K/uL) Final Lymphs, absolute 12/08/2022 12:23:37 1.59 1.00-4.80 (K/ul) Final Monos, Abs 12/08/2022 12:23:37 0.59 0.00-1.10 (K/uL) Final Eos, Abs 12/08/2022 12:23:37 0.13 0.00-0.70 (K/uL) Final Basos, Abs 12/08/2022 12:23:37 0.02 0.00-0.20 (K/uL) Final Immature Granulocytes, Number 12/08/2022 12:23:37 0.06 0.00-0.20 (K/uL) Final Performing Location LABORATORY [facility] [place] - [address] [facility] [address]
--- OUTSIDE RECORDS SUMMARY | 2023-03-05 06:37 | External Medical Summary | Summary of Care ---
Author Name Unknown Organization [facility] Address [address] [place] [address] Phone [phone] Care Team Providers Care Guide Rail Cleaner Name Role Phone Cyndee Kaminski DO Primary Care Provider +1- [phone] Reason for Visit * Reason Comments Return Visit Encounter Details Date Type Department Care Team Description 11/09/2022 Office Visit Gynecology/Obstetrics Enamoradoalethea Pino [address] [place] [address] Jewell Meeks PA-C [address] [place] [address] Normal in second trimester*; Rh negative status during in second trimester Allergies No known active allergiesdocumented as of this encounter (statuses as of 11/09/2022) Medications Medication Sig Dispensed Refills Start Date End Date Status 28-0.8 MG Oral Tablet Take by mouth . 0 Active documented as of this encounter (statuses as of 11/09/2022) Active Problems Problem Noted Date Normal 08/26/2022 Rh negative status during 07/29 Tobacco use disorder 09/17/2021 Estimated Date of Delivery Comme nts Yes 02/28/2023 Based on last me nstrual period of 05/24/2022 (Exact Date) documented as of this encounter (statuses as of 11/09/2022) Resolved Problems Problem Noted Date Resolved Date [...] as of this encounter (statuses as of 11/09/2022) Immunizations Name Administration Dates Next Due HPV [...] Sign Reading Time Taken Comments Blood Pressure 94/64 11/09/2022 11:47 AM EDT Pulse - - Temperature - - Respiratory Rate - - Oxygen Saturation - - Inhaled Oxygen Concentration - - Weight 84.4 kg (186 lb) 11/09/2022 11:47 AM EDT Height 171.5 cm (5' 7.5") 11/09/2022 11:47 AM ED T Body Mass Index 28.7 11/09/2022 11:47 AM EDT documented in this encounter Progress Notes * Jewell Meeks PA-C - 11/09/2022 12:04 PM EDT 24w1d Doing well without complaints. Had follow up anatomy for missed views, anatomy complete. Gender surprise. Reviewed third tri labs. Plans to complete next visit. Counseled on RhoGAM and Tdap with next visit. Denies bleeding/leaking/contractions. Baby is active. RTC in 4 weeks Jewell Meeks PA-C documented in this encounter Nursing Notes * Radha Duarte LPN - 11/09/2022 11:53 AM EDT 24w1d Denies concerns. Given instructions for 28 week labs at next visit. documented in this encounter Plan of Treatment Upcoming Encounters Date Type Specialty Care Team Description 12/08/2022 Office Visit Gynecology Obstetrics Divya Egan CRNP [address] [facility] [place] [address] 12/08/2022 Laboratory Laboratory Monisha Pino [address] [facility] [place] [address] Scheduled Orders Name Type Priority Associated Diagnoses Orde r Schedule CBC WITH WBC DIFFERENTIAL AND ANEMIA REFLEX WORKUP Lab Routine Normal in second trimester Expected: 12/10/2022 (Approximate), Expires: 11/10/2023 SYPHILIS ANTIBODY SCREEN WITH REFLEX TO RPR Lab Routine Normal in second trimester Expected: 11/16/2022 (Approximate), Expires: 11/10/2023 50-G GESTATIONAL GLUCOSE, 1 HOUR Lab Routine Normal in second trimester Expected: 12/10/2022 (Approximate), Expires: 11/10/2023 TYPE AND SCREEN Lab Routine Rh negative status during in second trimester Expected: 11/23/2022, Expires: 12/11/2023 Health Maintenance Due Date Last Done Comments [...] trimester documented in this encounter Care Teams Guide Rail Cleaner Relationship Specialty Start Date End Date Kaminski, Cyndee Sera, DO [address] [facility] [place] [address] PCP - General Family Medicine 04/12/22 documented as of this encounter
--- OUTSIDE RECORDS SUMMARY | 2023-03-05 06:37 | External Medical Summary | Summary of Care ---
Author Name Unknown Organization [facility] Address [address] [facility] [place] [address] Phone [phone] Care Team Providers Care Psychiatrist Name Role Phone Cyndee Kaminski DO Primary Care Provider +1- [phone] Encounter Details Date Type Department Care Team Description 12/09/2022 Telephone [facility] [address] [place] [address] Jewell Meeks PA-C [address] [place] [address] Allergies No known active allergiesdocumented as of this encounter (statuses as of 12/09/2022) Medications Medication Sig Dispensed Refills Start Date End Date Status 28-0.8 MG Oral Tablet Take by mouth . 0 Active documented as of this encounter (statuses as of 12/09/2022) Active Problems Problem Noted Date Normal 08/26/2022 Rh negative status during 07/29 Overview: rhoGAM given 12/08/22 Tobacco use disorder 09/17/2021 Estimated Date of Delivery Comme nts Yes 02/28/2023 Based on last me nstrual period of 05/24/2022 (Exact Date) documented as of this encounter (statuses as of 12/09/2022) Resolved Problems Problem Noted Date Resolved Date [...] 15 03/01/2017 GBS (group B Streptococcus c arrpancho), +RV culture, currently 02/08/2014 04/29/2016 Contact with [...] as of this encounter (statuses as of 12/09/2022) Immunizations Name Administration Dates Next Due HPV [...] Telephone Encounter - Jonna Lowery RN - 12/09/2022 12:00 PM EDT Patient called and made aware. She verbalized understanding * Telephone Encounter - Jonna Lowery RN - 12/09/2022 11:58 AM EDT ----- Message from Jewell Meeks PA-C sent at 12/09/2022 11:32 AM EDT ----- Please call with results as has not read patient portal messages. Labs normal for and shepassed her glucose testing. documented in this encounter Plan of Treatment Upcoming Encounters Date Type Specialty Care Team Description 12/22/2022 Office Visit Gynecology Obstetrics Jewell Meeks PA-C [address] [place] [address] Health Maintenance Due Date Last Done Comments [...] Not on filedocumented as of this encounter Care Teams Psychiatrist Relationship Specialty Start Date End Date Cyndee Kaminski, [address] [facility] [place] [address] PCP - General Family Medicine 04/12/22 documented as of this encounter
--- OUTSIDE RECORDS SUMMARY | 2023-03-05 06:37 | External Medical Summary | Summary of Care ---
Author Name Unknown Organization [facility] Address [address] [place] [address] Phone [phone] Care Team Providers Care Pest Control Service Sales Agent Name Role Phone Cyndee Kaminski DO Primary Care Provider [phone]- [phone] Reason for Visit * Reason Comments Return Visit Encounter Details Date Type Department Care Team Description 12/08/2022 [facility] [address] [facility] [place] [id number] Divya Egan CRNP [address] [place] [address] Normal in third trimester*; Rh negative status [...] Sign Reading Time Taken Comments Blood Pressure 104/66 12/08/2022 11:41 AM EDT Pulse - - Temperature - - Respiratory Rate - - Oxygen Saturation - - Inhaled Oxygen Concentration - - Weight 89.4 kg (197 lb) 12/08/2022 11:41 AM EDT Height 171.5 cm (5' 7.5") 12/08/2022 11:41 AM ED T Body Mass Index 30.4 12/08/2022 11:41 AM EDT documented in this encounter Progress Notes * JORDON Osorio - 12/08/2022 11:45 AM EDT 28w 2d Baby is very active. No leaking/bleeding or ctx. Labs and RhoGAM today. Declines Tdap. Recommend flu shot in , declines. Discussed [facility], to call with <10 movements in 2 hrs. 2 week return JORDON [place] * Radha Duarte LPN - 12/08/2022 11:44 AM EDT 28w2d Completing labs. Declines tdap. Rhogam. documented in this encounter Nursing Notes * Radha Duarte LPN - 12/08/2022 1:12 PM EDT Patient here for rhogam injection. Patient doing well no complaints. Injection given IM as ordered.Patient tolerated well. Patient to follow up as directed. Patient instructed to call if any complications. Patient verbalized understanding of instructions given and her follow up appt for VANNESSA Injection site: Right Gluteus Medication Source: Dispensed stock medication documented in this encounter Plan of Treatment Upcoming Encounters Date Type Specialty Care Team Description 12/22/2022 Office Visit Gynecology Obstetrics Jewell Meeks PA-C [address] [place] [id number] Health Maintenance Due Date Last Done Comments [...] in third trimester documented in this encounter Administered Medications Inactive Administered Medications - up to 3 most recent administrations Medication Order MAR Action Action Date Dose Rate Site Rho D Immune Globulin (Rhophylac) inj 300 mcg 300 mcg, Intramuscular, ONCE, On Wed12/08/22 at 1230, For 1 dose, Do not administer until type and screen has been collected! 1 MCG = 5 [employer]NATIONAL UNITS Given 12/08/2022 12:28 PM EDT 300 mcg Dorsogluteal Right documented in this encounter Care Teams Pest Control Service Sales Agent Relationship Specialty Start Date End Date Cyndee Kaminski DO [address] [facility] [place] [address] PCP - General Family Medicine 04/12/22 documented as of this encounter
[2023-03-05] MEDS: FERROUS SULFATE 325 MG TAB PO SCH (08:09)
[2023-03-05] MEDS: PRENATAL VITAMIN 1 TAB PO SCH (08:09)
[2023-03-05] MEDS: DOCUSATE SODIUM 100 MG CAP PO SCH ×2 (08:09→20:29)
[2023-03-06] MEDS: IBUPROFEN 600 MG TAB PO PRN (05:55)
[2023-03-06 06:57] LABS: Basophils # (auto) 0.04 K/uL (0.00-0.20); Basophils % (auto) 0.4 %; Eosinophils # (auto) 0.22 K/uL (0.00-0.50); Hematocrit (blood only) 34.7 % (37.0-47.0); Hemoglobin 11.9 g/dl (12.0-16.0); Immature Granulocytes # (auto) 0.06 K/uL (0.01-0.20); Immature Granulocytes % (auto) 0.6 %; Lymphocytes # (auto) 2.61 K/uL (1.20-3.40); Lymphocytes % (auto) 24.1 %; Mean Corpuscular Hemoglobin 28.6 pg (25.0-34.0); Mean Corpuscular Hgb Conc 34.3 g/dL (32.0-36.0); Mean Corpuscular Volume 83.4 fL (80.0-100.0); Mean Platelet Volume 12.5 fL (9.4-12.4); Monocytes # (auto) 0.69 K/uL (0.11-0.59); Monocytes % (auto) 6.4 %; Neutrophils # (auto) 7.19 K/uL (1.40-6.50); Neutrophils % (auto) 66.5 %; Platelet Count 130 K/uL (130-400); RDW Coefficient of Variation 14.4 % (11.5-14.5); RDW Standard Deviation 43.5 fL (36.4-46.3); Red Blood Count 4.16 M/uL (4.20-5.40); White Blood Count 10.81 K/ul (4.8-10.8)
[2023-03-06] MEDS: DOCUSATE SODIUM 100 MG CAP PO SCH (08:21)
[2023-03-06] MEDS: PRENATAL VITAMIN 1 TAB PO SCH (08:21)
[2023-03-06] MEDS: FERROUS SULFATE 325 MG TAB PO SCH (08:21)
--- NOTE | 2023-03-06 08:45 | Obstetrical Progress Note ---
Date of Service March 06, 2023 Assessment & Plan Admission and Anticipated Discharge Date Admission Date: March 05, 2023 Subjective Patient is seen and examined. She feels well, no complaints. Ambulating without dizziness Voiding without difficulty Tolerating regular diet with out N&V Bleeding is minimal No fever/ chills/ CP/ SOB/ N&V/ Leg pain Breast feeding without problems Vital Signs Temp Pulse Pulse Resp BP Pulse Ox O2 Del Method 03/06/23 07:00 36.6 C 83 16 105/69 98 Room Air 03/05/23 23:40 36.6 C 81 18 122/80 97 Room Air Lab Results 03/05/23 03/06/23 Range/Units 04:01 06:12 WBC 15.38 H 10.81 H (4.8-10.8) K/ul RBC 4.50 4.16 L (4.20-5.40) M/uL Hgb 12.6 11.9 L (12.0-16.0) g/dl Hct 37.0 34.7 L (37.0-47.0) % MCV 82.2 83.4 (80.0-100.0) fL MCH 28.0 28.6 (25.0-34.0) pg MCHC 34.1 34.3 (32.0-36.0) g/dL RDW Std Deviation 41.3 43.5 (36.4-46.3) fL RDW Coeff of Bobo 14.0 14.4 (11.5-14.5) % Plt Count 144 130 (130-400) K/uL MPV 12.6 H 12.5 H (9.4-12.4) fL Immature Gran % (Auto) 0.6 % Neut % (Auto) 66.5 % Lymph % (Auto) 24.1 % Stan[place]aus % (Auto) 6.4 % Eos % (Auto) 2.0 % Baso % (Auto) 0.4 % Neut # (Auto) 7.19 H (1.40-6.50) K/uL Lymph # (Auto) 2.61 (1.20-3.40) K/uL Stanislaus # (Auto) 0.69 H (0.11-0.59) K/uL Eos # (Auto) 0.22 (0.00-0.50) K/uL Baso # (Auto) 0.04 (0.00-0.20) K/uL Immature Gran # (Auto) 0.06 (0.01-0.20) K/uL PE: General: Alert, orientedx3, NAD Abd: soft, NT, fundus firm, below Umbilicus Perineum intact, Lochia rubra minimal Ext; NT, no edema AP: 28 yo s/p , precipitous in car,ppd# 1 VSS Afebrile doing well Continue routine care All questions were answered D/C home , f/u in office Results & Data Vital Signs (Past 12 Hours) Vital Signs Temp Pulse Pulse Resp BP Pulse Ox O2 Del Method 03/06/23 07:00 36.6 C 83 16 105/69 98 Room Air 03/05/23 23:40 36.6 C 81 18 122/80 97 Room Air
[2023-03-06] MEDS ORDERED: bisacodyL 5 MG TABEC PO SCH (20:00)
[2023-03-07] MEDS ORDERED: bisacodyL 10 MG SUPP PR PRN (03:44)
== END 2023-03-06 14:05 | disposition home health service (06) | DRG 807 ==
LOC: 4S1 03:29 → 4E2 06:00